=== PATIENT | male | born 1955 | race Caucasian/White ===

== ENCOUNTER → 2024-03-26 | Outpatient (REF) | LOC: M LAB LCGH 09:07 | PROVIDERS: ATTEND Emergency Medicine | DX: Z00.00 Encounter for general adult medical examination without abnormal findings (principal) ==

== ENCOUNTER 2024-04-12 09:54 | Day surgery (SDC) | payer MEDICARE ==
[~2024-04-12] VITALS: Ht 157.5 cm; Wt 63.9 kg
[~2024-04-12 09:54] MED LIST: ALL10TAB2 PO; LMEF1TAB PO; LOSA100T5 PO; METO1TAB7 PO; MIDAZOLAM INJ 2MG/2ML VIAL As Ordered ONE; PHENYLEPHRINE 10% OPHTH SOL 5ML OD PRN; QUET50TA4 PO; SIMV20TA22 PO; VITA1CAP14 PO; fentaNYL 100 MCG/2 ML INJECTION As Ordered ONE
[2024-04-12] MEDS: OFLOXACIN 0.3 % (OCUFLOX) OPTH SOL 5ML OD ONE (11:15)
[2024-04-12] MEDS: LIDOCAINE 3.5 % 1ML OPHTH TOPICAL GEL OU ONE (11:15)
[2024-04-12] MEDS: CYCLOPENTOLATE 1% OPHTH SOLN 2ML BTL OD SCH (11:34)
[2024-04-12] MEDS: TROPICAMIDE 1% OPHTH SOLN 15ML OD SCH (11:34)
[2024-04-12] MEDS: PHENYLEPHRINE 2.5% OPHTH SOL 2ML OD SCH (11:34)
[2024-04-12] MEDS ORDERED: LIDOCAINE 2% 100MG/5ML SDV (FOR ANES.) As Ordered ONE (12:59)
[2024-04-12] MEDS ORDERED: propofoL 200 MG/20 ML VIAL As Ordered ONE (12:59)
[2024-04-12] MEDS ORDERED: ONDANSETRON 4MG 2ML VIAL As Ordered ONE (12:59)
[2024-04-12] MEDS ORDERED: ePHEDrine SULFATE 25 MG/5 ML(5MG/ML) SYRINGE As Ordered ONE (13:21)
[2024-04-12] MEDS: LIDOCAINE 1% SDV 5ML VIAL As Ordered ONE (13:23)
[2024-04-12] MEDS: CEFUROXIME 1MG/0.1ML INTRACAMERAL INJ As Ordered ONE (13:26)
[2024-04-12] MEDS: BSS IRRIG/VANCO(10MG)/TOBRA(5MG)/EPINEPH(1:1000-0.5CC)500ML BAG-ORONLY As Ordered ONE (13:26)
[2024-04-12 14:20] VITALS: BP 162/79; TEMP 97.3; O2SAT 98
== END 2024-04-12 14:33 | disposition home or self-care (01) ==
LOC: M SDC 09:54
PROVIDERS: ATTEND Ophthalmology
DX: H25.11 Age-related nuclear cataract, right eye (principal); I10 Essential (primary) hypertension; E78.00 Pure hypercholesterolemia, unspecified; R73.03 Prediabetes; E55.9 Vitamin D deficiency, unspecified; Z79.899 Other long term (current) drug therapy; Z85.828 Personal history of other malignant neoplasm of skin; Z90.49 Acquired absence of other specified parts of digestive tract; H54.8 Legal blindness, as defined in USA; Z86.16 Personal history of COVID-19; Z80.0 Family history of malignant neoplasm of digestive organs
CPT/HCPCS: 66984; J0697; J1100; J2250; J2405; J3010; V2632

== ENCOUNTER 2024-04-19 08:46 | Day surgery (SDC) | payer MEDICARE ==
[~2024-04-19] VITALS: Ht 160 cm; Wt 65.1 kg
[~2024-04-19 08:46] MED LIST changes: -PHENYLEPHRINE 10% OPHTH SOL 5ML OD PRN; +PHENYLEPHRINE 10% OPHTH SOL 5ML OS PRN; -fentaNYL 100 MCG/2 ML INJECTION As Ordered ONE
[2024-04-19] MEDS ORDERED: LIDOCAINE 2% 100MG/5ML SDV (FOR ANES.) As Ordered ONE (09:46)
[2024-04-19] MEDS ORDERED: propofoL 200 MG/20 ML VIAL As Ordered ONE (09:46)
[2024-04-19] MEDS: LIDOCAINE 3.5 % 1ML OPHTH TOPICAL GEL OU ONE (09:52)
[2024-04-19] MEDS: CYCLOPENTOLATE 1% OPHTH SOLN 2ML BTL OS SCH (09:52)
[2024-04-19] MEDS: OFLOXACIN 0.3 % (OCUFLOX) OPTH SOL 5ML OS ONE (09:52)
[2024-04-19] MEDS: PHENYLEPHRINE 2.5% OPHTH SOL 2ML OS SCH (09:53)
[2024-04-19] MEDS: TROPICAMIDE 1% OPHTH SOLN 15ML OS SCH (09:53)
[2024-04-19] MEDS: LIDOCAINE 1% SDV 5ML VIAL As Ordered ONE (10:22)
[2024-04-19] MEDS: CEFUROXIME 1MG/0.1ML INTRACAMERAL INJ As Ordered ONE (10:22)
[2024-04-19] MEDS: BSS IRRIG/VANCO(10MG)/TOBRA(5MG)/EPINEPH(1:1000-0.5CC)500ML BAG-ORONLY As Ordered ONE (10:22)
[2024-04-19 11:08] VITALS: BP 151/70; TEMP 97; O2SAT 98
== END 2024-04-19 11:30 | disposition home or self-care (01) ==
LOC: M SDC 08:46
PROVIDERS: ATTEND Ophthalmology
DX: H25.12 Age-related nuclear cataract, left eye (principal); I10 Essential (primary) hypertension; E78.5 Hyperlipidemia, unspecified; Z79.899 Other long term (current) drug therapy
CPT/HCPCS: 66984; J0697; J2250; V2632